=== PATIENT | female | born 1990 | race Caucasian/White ===

== ENCOUNTER 2019-10-29 12:39 | Inpatient (IN) ==
[2019-10-29] MEDS ORDERED: CLINDAMYCIN INJ 900 MG in PREMIX 1 EACH IV ONE (14:17)
[2019-10-29] MEDS ORDERED: CITRIC ACID/SODIUM CITRATE 30 ML UDCUP PO ONE (14:20)
[2019-10-29] MEDS ORDERED: FAMOTIDINE 20 MG/2 ML VIAL IV ONE (14:20)
[2019-10-29] MEDS ORDERED: LACTATED RINGERS 1,000 ML IV SCH (14:30)
[2019-10-29 14:46] LABS: Basophils % 0.3 % (0.0-0.8); Eosinophils % 0.3 % (0.00-10.9); Hematocrit 34.4 VOL% (35.7-47.0); Hemoglobin 10.7 GM/DL (12.0-16.0); Immature Granulocytes % 0.8 %; Immature Granulocytes Absolute 0.09 #; Lymphocytes % 17.8 % (21.3-54.2); Mean Corpuscular HGB Conc 31.1 GM/DL (32-36); Mean Corpuscular Volume 83.3 FL (87-102); Mean Platelet Volume 10.9 FL (9.6-12.0); Monocytes % 5.8 % (1.7-12.7); Platelet Count 194 T/CUMM (130-400); Red Blood Count 4.13 MC/CUMM (3.8-5.5); Red Cell Distribution Width 15.3 % (9.3-17.3); White Blood Count 11.1 T/CUMM (4-12)
[2019-10-29] MEDS ORDERED: LACTATED RINGERS 1,000 ML IV ONE (17:00)
[2019-10-29] MEDS ORDERED: miSOPROStoL 200 MCG TABLET ONE (17:56)
[2019-10-29] MEDS ORDERED: TRANEXAMIC ACID 1,000 MG/10 ML VIAL ONE (17:56)
[2019-10-29] MEDS ORDERED: METHYLERGONOVINE 0.2 MG/1 ML AMP ONE (17:56)
[2019-10-29] MEDS ORDERED: OXYTOCIN/LR 20 UNIT/1,000 ML BAG IV ONE ×3 (17:56→19:48)
[2019-10-29] MEDS ORDERED: CARBOPROST TROMETHAMINE 250 MCG/ML AMP IM ONE (17:56)
[2019-10-29] MEDS ORDERED: ACETAMINOPHEN 500 MG TABLET PO PRN (20:14)
[2019-10-29] MEDS: KETOROLAC 30 MG/1 ML VIAL IV SCH (20:47)
[2019-10-29] MEDS ORDERED: ONDANSETRON 4 MG/2 ML VIAL ONE (23:23)
[2019-10-29] MEDS ORDERED: ONDANSETRON 4 MG/2 ML VIAL IV PRN (23:24)
[2019-10-29] MEDS ORDERED: IBUPROFEN 800 MG TABLET PO PRN (23:25)
[2019-10-30] MEDS: KETOROLAC 30 MG/1 ML VIAL IV SCH ×3 (03:00→18:46)
[2019-10-30] MEDS: CLINDAMYCIN INJ 900 MG in PREMIX 1 EACH IV SCH ×2 (03:05→11:09)
[2019-10-30 06:15] LABS: Basophils % 0.1 % (0.0-0.8); Hematocrit 29.7 VOL% (35.7-47.0); Hemoglobin 9.3 GM/DL (12.0-16.0); Immature Granulocytes % 0.6 %; Immature Granulocytes Absolute 0.09 #; Lymphocytes # 1.2 10*3/uL (1.4-4.0); Lymphocytes % 7.7 % (21.3-54.2); Mean Corpuscular HGB Conc 31.3 GM/DL (32-36); Mean Corpuscular Volume 81.4 FL (87-102); Mean Platelet Volume 11.1 FL (9.6-12.0); Monocytes % 4.2 % (1.7-12.7); Neutrophils % 87.4 % (38.7-73.9); Platelet Count 197 T/CUMM (130-400); Red Blood Count 3.65 MC/CUMM (3.8-5.5); Red Cell Distribution Width 15.1 % (9.3-17.3); White Blood Count 15.3 T/CUMM (4-12)
[2019-10-30] MEDS: FERROUS SULFATE 325 MG TABLET PO SCH ×2 (09:43→20:11)
[2019-10-30] MEDS: MAGNESIUM HYDROXIDE SUSP 30 ML UDCUP PO PRN (09:44)
[2019-10-31 09:47] VITALS: BP 106/61
[2019-10-31] MEDS: MAGNESIUM HYDROXIDE SUSP 30 ML UDCUP PO PRN (09:59)
[2019-10-31] MEDS: FERROUS SULFATE 325 MG TABLET PO SCH (09:59)
== END 2019-10-31 14:50 | disposition home or self-care (01) | DRG 788 ==
LOC: N.LDOUT 12:39 → N.LD 12:41 → N.OB 23:19
PROVIDERS: ADMIT Obstetrics & Gynecology; ATTEND Obstetrics & Gynecology
PROC: LDCSECT (ICD-10-PCS; 2019-10-29 18:15)

== ENCOUNTER 2021-07-20 06:04 | Inpatient (IN) ==
[2021-07-20] MEDS ORDERED: CLINDAMYCIN INJ 900 MG/50 ML PREMIX IV ONE (06:12)
[2021-07-20] MEDS ORDERED: CITRIC ACID/SODIUM CITRATE 30 ML UDCUP PO ONE (06:12)
[2021-07-20] MEDS ORDERED: FAMOTIDINE 20 MG/2 ML VIAL IV ONE (06:12)
[2021-07-20] MEDS: LACTATED RINGERS 1,000 ML IV SCH ×2 (06:39→13:25)
[2021-07-20 06:56] LABS: Basophils % 0.4 % (0.0-0.8); Eosinophils % 0.7 % (0.00-10.9); Hematocrit 31.5 VOL% (35.7-47.0); Hemoglobin 9.8 GM/DL (12.0-16.0); Immature Granulocytes % 1.4 %; Lymphocytes % 26.1 % (21.3-54.2); Mean Corpuscular HGB Conc 31.1 GM/DL (32-36); Mean Platelet Volume 10.9 FL (9.6-12.0); Monocytes % 7.2 % (1.7-12.7); Neutrophils % 64.2 % (38.7-73.9); Platelet Count 193 T/CUMM (130-400); Red Blood Count 3.89 MC/CUMM (3.8-5.5); Red Cell Distribution Width 16.5 % (9.3-17.3); White Blood Count 9.6 T/CUMM (4-12)
[2021-07-20 06:57] LABS: Eosinophils # 0.1 10*3/uL (0.0-0.87); Immature Granulocytes Absolute 0.13 #; Lymphocytes # 2.5 10*3/uL (1.4-4.0)
[2021-07-20] MEDS ORDERED: miSOPROStoL 200 MCG TABLET ONE (07:01)
[2021-07-20] MEDS ORDERED: TRANEXAMIC ACID 1,000 MG/10 ML VIAL ONE (07:01)
[2021-07-20] MEDS ORDERED: OXYTOCIN/LR 20 UNIT/1,000 ML BAG IV ONE ×3 (07:01→11:32)
[2021-07-20] MEDS ORDERED: SODIUM CHLORIDE 0.9% 0 ML IV ONE (07:02)
[2021-07-20] MEDS ORDERED: METHYLERGONOVINE 0.2 MG/1 ML AMP ONE (07:02)
[2021-07-20 07:25] LABS: Alanine Aminotransferase < 9 U/L (13-56); Albumin 2.3 G/DL (3.4-5.0); Alkaline Phosphatase 116 U/L (45-117); Aspartate Amino Transferase 12 U/L (0-37); Blood Urea Nitrogen 4 MG/DL (7-18); Calcium 8.1 MG/DL (8.5-10.1); Carbon Dioxide 20 MMOL/L (21-32); Estimated Glom Filtration Rate 127 ML/MIN; Glucose 75 MG/DL (74-106); Osmolality,Calculated 270.7 MOS/KG (273-304); Potassium 3.5 MMOL/L (3.5-5.1); Sodium 138 MMOL/L (136-145); Total Protein 6.3 G/DL (6.4-8.2)
[2021-07-20] MEDS ORDERED: ONDANSETRON 4 MG/2 ML VIAL ONE (07:29)
[2021-07-20] MEDS ORDERED: BUPIVACAINE SPINAL 0.75% 2 ML AMP SPINAL ONE (07:29)
[2021-07-20] MEDS ORDERED: PHENYLEPHRINE 1 MG/10 ML SYRINGE IV ONE (07:29)
[2021-07-20] MEDS ORDERED: ACETAMINOPHEN INJ 1,000 MG/100 ML VIAL IV ONE (08:07)
[2021-07-20] MEDS ORDERED: KETOROLAC 30 MG/1 ML VIAL ONE (08:07)
[2021-07-20 08:10] LABS: Cord Venous Blood HCO3 22.7 MMOL/L; Cord Venous Blood PCO2 39.4 MMHG; Cord Venous Blood PO2 24.2 MMHG
[2021-07-20 08:15] LABS: Bacteria,Urine Occasional /HPF (Few); Bilirubin,Urine Negative (Negative); Blood, Urine Small mg/dL (Negative); Calcium Oxalate Crystals,Urine Few /HPF (Few); Glucose,Urine (UA) Negative (Negative); Ketones,Urine Negative (Negative); Mucus,Urine Occasional /LPF (Occasional); Nitrite,Urine Negative (Negative); Protein,Urine Negative; RBC,Urine 35 /HPF (0-4); Squamous Epithelial Cell,Urine Occasional /HPF (0-10); Urine Appearance CLEAR (Clear); Urine Color Yellow (Yellow); Urine Specific Gravity 1.015 (1.001-1.035); Urine Urobilinogen < 2.0 EU/DL (0.2-1.0)
[2021-07-20] MEDS ORDERED: LACTATED RINGERS 1,000 ML IV ONE (08:33)
[2021-07-20] MEDS ORDERED: OXYTOCIN/LR 20 UNIT/1,000 ML BAG IV PRN (09:21)
[2021-07-20] MEDS ORDERED: RHO(D) IMMUNE GLOBULIN 300 MCG SYRINGE IM ONE (11:32)
[2021-07-20] MEDS ORDERED: ACETAMINOPHEN 325 MG TABLET PO PRN (11:32)
[2021-07-20] MEDS ORDERED: ONDANSETRON 4 MG/2 ML VIAL IV PRN (11:32)
[2021-07-20] MEDS ORDERED: diphenhydrAMINE CAP 25 MG CAPSULE PO PRN (11:40)
[2021-07-20] MEDS ORDERED: diphenhydrAMINE CAP 25 MG CAPSULE ONE (11:42)
[2021-07-20] MEDS ORDERED: LACTATED RINGERS 1,000 ML IV SCH (12:00)
[2021-07-20] MEDS: KETOROLAC 30 MG/1 ML VIAL IV SCH ×2 (15:43→22:24)
[2021-07-20] MEDS: CLINDAMYCIN INJ 900 MG/50 ML PREMIX IV SCH ×2 (15:47→22:30)
[2021-07-20] MEDS: ACETAMINOPHEN 500 MG TABLET PO SCH ×2 (15:53→22:30)
[2021-07-21 05:04] LABS: Basophils % 0.3 % (0.0-0.8); Eosinophils # 0.1 10*3/uL (0.0-0.87); Eosinophils % 0.9 % (0.00-10.9); Hematocrit 29.1 VOL% (35.7-47.0); Hemoglobin 8.9 GM/DL (12.0-16.0); Immature Granulocytes % 0.7 %; Immature Granulocytes Absolute 0.09 #; Lymphocytes # 2.5 10*3/uL (1.4-4.0); Lymphocytes % 18.9 % (21.3-54.2); Mean Corpuscular HGB Conc 30.6 GM/DL (32-36); Mean Corpuscular Volume 81.7 FL (87-102); Mean Platelet Volume 10.9 FL (9.6-12.0); Monocytes % 7.1 % (1.7-12.7); Neutrophils % 72.1 % (38.7-73.9); Platelet Count 170 T/CUMM (130-400); Red Blood Count 3.56 MC/CUMM (3.8-5.5); Red Cell Distribution Width 16.3 % (9.3-17.3); White Blood Count 13.3 T/CUMM (4-12)
[2021-07-21] MEDS: SIMETHICONE CHEW 80 MG TABLET PO PRN (09:29)
[2021-07-21] MEDS: DOCUSATE SODIUM 100 MG CAPSULE PO SCH ×2 (09:29→21:37)
[2021-07-21] MEDS: MULTIVITAMIN (PRENATAL) TABLET PO SCH (09:29)
[2021-07-21] MEDS: MAGNESIUM HYDROXIDE SUSP 30 ML UDCUP PO PRN ×2 (09:29→21:37)
[2021-07-21] MEDS: IBUPROFEN 800 MG TABLET PO PRN (11:56)
[2021-07-21] MEDS ORDERED: oxyCODONE/ACETAMINOPHEN 5-325 MG TABLET PO PRN (15:40)
[2021-07-21] MEDS: oxyCODONE/ACETAMINOPHEN 5-325 MG TABLET PO PRN (16:17)
[2021-07-22] MEDS: oxyCODONE/ACETAMINOPHEN 5-325 MG TABLET PO PRN (03:11)
[2021-07-22 08:47] VITALS: BP 101/60
[2021-07-22] MEDS: DOCUSATE SODIUM 100 MG CAPSULE PO SCH (09:12)
[2021-07-22] MEDS: MAGNESIUM HYDROXIDE SUSP 30 ML UDCUP PO PRN (09:12)
[2021-07-22] MEDS: MULTIVITAMIN (PRENATAL) TABLET PO SCH (09:12)
[2021-07-22] MEDS: SIMETHICONE CHEW 80 MG TABLET PO PRN (09:12)
[2021-07-22] MEDS: IBUPROFEN 800 MG TABLET PO PRN (09:13)
== END 2021-07-22 13:45 | disposition home or self-care (01) | DRG 788 ==
LOC: N.LD 06:04 → N.OB 10:56
PROVIDERS: ADMIT Obstetrics & Gynecology; ATTEND Obstetrics & Gynecology
PROC: LDCSECT (ICD-10-PCS; 2021-07-20 07:30)